=== PATIENT | male | born 1975 | race Caucasian/White ===

== ENCOUNTER 2023-12-17 13:51 | Emergency (ER) | payer OTHER, SELFPAY ==
[2023-12-17 13:53] VITALS: BP 129/95; PULSE 69; RESP 12; TEMP 36.6; O2SAT 99
[2023-12-17] MEDS: Tetracaine 0.5% 4 ML BTL (14:06)
[2023-12-17] MEDS: Fluorescein STRIPS 100/BOX 1 MG (14:06)
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
[2023-12-17] MEDS: Erythromycin Ophth Oint 3.5 GM TUBE OS (15:12)
== END 2023-12-17 15:12 | disposition home or self-care (01) ==
LOC: ER 15:21
PROVIDERS: Emergency Provider Physician Assistant; Visit Provider Physician Assistant
DX: H11.31 Conjunctival hemorrhage, right eye (principal); Z23 Encounter for immunization; V18.4XXA Pedal cycle driver injured in noncollision transport accident in traffic accident, initial encounter; Y93.55 Activity, bike riding; Y92.482 Bike path as the place of occurrence of the external cause
CPT/HCPCS: 90471; 90715; 99283